=== PATIENT | female | born 1985 | race Caucasian/White ===

== ENCOUNTER 2019-08-08 13:04 | Emergency (ER) | payer SELFPAY ==
[2019-08-08 13:11] VITALS: BP 178/74; PULSE 103; RESP 18; TEMP 36.8; O2SAT 96
--- NOTE | 2019-08-08 13:29 | ED.GENADUL_ITS ---
Discharge Plan Disposition Patient Disposition: HOME Condition: Improving Discharge Details Chief Complaint: RespSymp Clinical Impression: Acute bronchitis, Rib fracture Primary Care Provider: None,None ED Provider: Ilda Bautista Home Meds and New Rx's Prescriptions: New oxycodone 5 mg tablet 5 mg PO Q6H PRN (Reason: pain) Qty: 7 RF: 0 prednisone 20 mg tablet See Rx Instructions .ROUTE .COMPLEX Qty: 12 RF: 0 albuterol sulfate 90 mcg/actuation aerosol powdr breath activated 2 inh IH Q6H PRN (Reason: shortness of breath or wheezing) Qty: 1 RF: 0 Continued buprenorphine-naloxone [Suboxone] 8-2 mg Film 2 film SUBLINGUAL DAILY RF: 0 Discharge Instructions Instructions: Rib Fracture (ED), Acute Bronchitis (ED) Additional Instructions: Alternate Tylenol and Motrin as needed and directed for pain. Take the oxycodone for pain not relieved with Tylenol Motrin. You can also try [id number] Lidoderm patches to apply topically for pain. Use the incentive spirometer as directed to help with deep breathing to prevent pneumonia. Take the steroids until finished. You will receive a call from care management regarding a follow-up appointment with a primary care doctor within the next week. Return to the emergency department if you develop any worsening or new concerning symptoms. Discharge Data Discharge Date/Time-TO BE ENTERED AT DEPARTURE: 08/08/19 15:35 Discharge Physician: Ilda Bautista Medical Decision Making [id number] -- 34-year-old female with a former history of IV drug abuse currently on Suboxone and a tobacco smoker who presents with cough with green sputum, wheezing, shortness of breath for the past few weeks, and right-sided lower rib pain after a coughing fit last night in which she heard a pop. Heart rate 103 on arrival. Normal oxygen saturation and respiratory rate, afebrile. Patient mildly hypertensive which appears likely due to discomfort in her rib. She has wheezing and rhonchi throughout. Presentation likely consistent with bronchitis versus pneumonia in setting of either rib strain or fracture. Will obtain a right ribs and chest x-ray give a dose of ibuprofen and a DuoNeb and prednisone and reassess. 1420 --patient shortness of breath and wheezing better. Still with coarse breath sounds throughout. X-ray notes right posterior lateral seventh rib fracture. Lidoderm patch placed. Patient states she has stopped her Suboxone in the past when taking narcotics if needed for pain. She took her Suboxone this morning so we will send home with a prescription for narcotic pain meds to take later or tomorrow as needed. We will give another DuoNeb and reassess. 1510 --patient feels much better and she is requesting to go home. She was advised to hold on Suboxone while taking her narcotic pain meds. She was given incentive spirometer for home. We will give a prescription for inhaler, prednisone. She was placed on care management list to arrange for a follow-up appointment for reevaluation. Usual and customary return precautions given prior to discharge. Imaging Data Radiologic Study: Radiologist's impression: XR RIBS RT W PA LAT CHEST INDICATION: cough, wheezing, r/o acute disease. COMPARISON: No exams were available for comparison TECHNIQUE: 2D digital imaging was performed. FINDINGS: Heart size and pulmonary vasculature within normal limits. The lungs are clear. There does appear to be blunting of the right costophrenic angle and a tiny pleural effusion cannot be excluded. No pneumothorax is present. There is a minimally displaced fracture involving the posterior lateral aspect of the right 7th rib. IMPRESSION: Minimally displaced fracture of the posterior lateral aspect of the right 7th rib. HPI General Mode of arrival: ambulatory . Date/Time Provider Initiated Documentation: 08/08/19 13:15 . Limitations to Documentation: no limitations . Information obtained by: patient . HPI Narrative: Patient is a 34-year-old female who is a tobacco smoker on Suboxone presents with cough with green sputum, wheezing, shortness of breath for the past few weeks. She states last night she had a coughing fit and felt a pop in her right lower ribs. She admits to pain with movement and deep breath now. She has taken [id number] cough and cold medication. She denies any known fever. Related Data Home Medications Medication Instructions Recorded Confirmed albuterol sulfate 2 inh IH Q6H PRN #1 each 08/08/19 buprenorphine-naloxone [Suboxone] 2 film SUBLINGUAL DAILY 08/08/19 08/08/19 oxycodone 5 mg PO Q6H PRN #7 tab 08/08/19 prednisone See Rx Instructions .ROUTE 08/08/19 .COMPLEX #12 tab Previous Rx's Medication Instructions Recorded albuterol sulfate 2 inh IH Q6H PRN #1 each 08/08/19 oxycodone 5 mg PO Q6H PRN #7 tab 08/08/19 prednisone See Rx Instructions .ROUTE 08/08/19 .COMPLEX #12 tab Allergies Allergy/AdvReac Type Severity Reaction Status Date / Time chlorpromazine Allergy Unverified 08/08/19 13:15 [From Thorazine] Penicillins Allergy Unverified 08/08/19 13:15 shellfish derived Allergy Unverified 08/08/19 13:15 General Stated Complaint: RespSymp DELFINA: 3 Review of Systems All systems reviewed & are unremarkable except as noted in HPI and below Constitutional Constitutional: Reports as per HPI, Denies chills and Denies fever(s) Eyes Eyes: Denies blurry vision ENT Ears, Nose, Mouth, and Throat: Denies dizziness, Denies sore throat and Denies throat swelling Cardiovascular Cardiovascular: Denies chest pain and Reports dyspnea Respiratory Respiratory: Reports cough and Reports dyspnea Gastrointestinal Gastrointestinal: Denies abdominal pain, Denies diarrhea and Denies vomiting Genitourinary Genitourinary: Denies hematuria and Denies dysuria Musculoskeletal Musculoskeletal: Denies back pain and Denies numbness Integumentary/Breasts Skin/Breast: Denies lesions and Denies rash Neurologic Neurologic: Denies dizziness, Denies focal weakness and Denies numbness Allergic/Immunologic Allergic/Immunologic: Denies throat swelling [facility] Medical History IV drug abuse (Acute) Surgical History History of bilateral tubal ligation (Acute) Social History Smoking/Tobacco Use Status: Current every day Tobacco Type: cigarettes Alcohol Intake: never Drug use: Never Substance use type: does not use Do you feel safe at home: Yes Do you feel safe in your relationship?: Yes Exam Const General: cooperative, healthy appearing and no acute distress HENMT Head: normal to inspection Ears: hearing grossly normal bilaterally, external ears normal and TM's normal bilaterally General nose exam: external nose normal Mouth: oral mucosae normal Throat: posterior oropharynx normal Eyes General: appearance normal, both eyes and all related structures Neck Neck: normal visual inspection Chest Chest: normal inspection of the chest and tenderness (Right lower anterior lateral ribs) Resp Effort & Inspection: normal respiratory effort and able to speak in complete sentences Auscultation: rhonchi upper bilaterally and lower bilaterally and wheezes lower bilaterally and upper bilaterally Cardio Rate: tachycardic Rhythm: regular rhythm Skin General skin exam: no rashes or lesions noted Neuro General: alert, awake and oriented x3 Motor: muscle tone normal throughout Extrem General: normal to inspection and full ROM Psych Appearance: grossly normal Affect: normal affect Course Vital Signs Vital signs: Vital Signs Temperature 98.2 F 08/08/19 13:11 Pulse 103 H 08/08/19 13:11 Respiratory Rate 18 08/08/19 13:11 Blood Pressure 178/74 H 08/08/19 13:11 Pulse Oximetry 96 08/08/19 13:11 Temperature 98.2 F 08/08/19 13:11 Temperature Source Temporal Artery Scan 08/08/19 13:11 Pulse 103 H 08/08/19 13:11 Respiratory Rate 18 08/08/19 13:11 Respiratory Effort 08/08/19 13:16 Respiratory Depth Shallow 08/08/19 13:16 Blood Pressure 178/74 H 08/08/19 13:11 Blood Pressure Position Sitting 08/08/19 13:11 Pulse Oximetry 96 08/08/19 13:11 Oxygen Delivery Method Room Air 08/08/19 13:11 Oxygen Flow Rate 0 08/08/19 13:11 Pain Level 10 08/08/19 13:11
[2019-08-08 13:32] VITALS: PULSE 103; RESP 18; RESP 7; O2SAT 96
[2019-08-08] MEDS: Albuterol/Ipratropium 3 ML UPD VIAL UPD ×2 (13:32→14:29)
[2019-08-08] MEDS: predniSONE 20 MG TAB 60 MG PO (13:32)
[2019-08-08] MEDS: Ibuprofen 600 MG TAB (13:33)
--- NOTE | 2019-08-08 13:54 | DI.RAD_ITS ---
EXAM: XR RIBS RT W PA LAT CHEST INDICATION: cough, wheezing, r/o acute disease. COMPARISON: No exams were available for comparison TECHNIQUE: 2D digital imaging was performed. FINDINGS: Heart size and pulmonary vasculature within normal limits. The lungs are clear. There does appear t o be blunting of the right costophrenic angle and a tiny pleural effusion cannot be excluded. No pne umothorax is present. There is a minimally displaced fracture involving the posterior lateral aspect of the right 7th rib. IMPRESSION: Minimally displaced fracture of the posterior lateral aspect of the right 7th rib.
[2019-08-08] MEDS: Lidocaine 5% Patch 1 PATCH TP (14:26)
[2019-08-08 14:29] VITALS: RESP 4; RESP 8
--- NOTE | 2019-08-08 15:40 | NUR.NOTE ---
Nursing Note: Referral given to [employer] Operator for establish PCP and follow up. Janel Rey.
== END 2019-08-08 15:35 | disposition home or self-care (01) ==
PROVIDERS: Emergency Provider Physician Assistant
DX: J20.9 Acute bronchitis, unspecified (principal); S22.31XA Fracture of one rib, right side, initial encounter for closed fracture; X50.9XXA Other and unspecified overexertion or strenuous movements or postures, initial encounter; Z79.891 Long term (current) use of opiate analgesic; F11.10 Opioid abuse, uncomplicated; F17.210 Nicotine dependence, cigarettes, uncomplicated
CPT/HCPCS: 81025; 94640; 99284; 71046; 71100; J7512; J7620

== ENCOUNTER 2019-08-13 17:57 | Inpatient (IN) | payer SELFPAY ==
[2019-08-13] VITALS (32 sets, daily range): BP systolic 127–157; BP diastolic 75–100; PULSE 98–117; RESP 11–25; TEMP 36.7–37; O2SAT 84–99
[2019-08-13 19:04] LABS: Abs Immature Grans 0.02 k/cumm (0.0-0.09); Absolute Basophil Count 0.02 k/cumm (0.0-0.2); Absolute Eosinophil Count 0.13 k/cumm (0.0-0.7); Absolute Lymphocyte Count 1.94 k/cumm (1.2-3.4); Basophils % 0.2; Eosinophils % 1.1; Immature Grans % 0.2; Lactate 0.8 mmol/L (0.6-1.4); Lymphocytes % 16.6; Mean Corp. HGB Concentration 33.3 g/dL (32.0-36.0); Mean Corpuscular Hemoglobin 29.2 pg (27.0-33.0); Mean Corpuscular Volume 87.7 fL (80-95); Mean Platelet Volume 10.8 fL (8.0-11.0); Neutrophils % 69.9; Platelet Count 182 x1000/uL (130-400); RBC 3.42 m/cumm (4.00-5.20); RBC Distribution Width 12.9 % (11.7-14.6); White Blood Cell Count 11.71 k/cumm (4.4-10.8)
[2019-08-13 19:05] LABS: Absolute Monocyte Count 1.41 k/cumm (0.11-0.7); Absolute Neutrophil Count 8.19 k/cumm (1.2-6.7)
[2019-08-13] MEDS: Albuterol/Ipratropium 3 ML UPD VIAL UPD (19:15)
[2019-08-13 19:26] LABS: ALT 31 U/L (14-59); AST 28 U/L (15-37); Albumin 2.8 g/dL (3.4-5.0); Alkaline Phosphatase 94 U/L (46-116); Anion Gap 4.9 mmol/L (3-11); BUN 8 mg/dL (7-18); Bilirubin, Total 0.4 mg/dL (0.2-1.0); CO2 31.1 mmol/L (21.0-32.0); CREATININE 0.62 mg/dL (0.55-1.02); Calcium 8.3 mg/dL (8.5-10.1); Chloride 95 mmol/L (98-107); Glucose 105 mg/dL (74-106); NT-proBNP 505 pg/mL (<300); Potassium 3.5 mmol/L (3.5-5.1); Sodium 131 mmol/L (136-145); Total Protein 6.9 g/dL (6.4-8.2); Troponin I < 0.05 ng/Ml (<0.06)
[2019-08-13 19:34] LABS: Bilirubin Negative (Negative); Blood Trace-lysed (Negative); Clarity Clear (Clear); Glucose Negative (Negative); Ketones Negative (Negative); Leukocyte Esterase Small (Negative); Nitrite Negative (Negative); Specific Gravity <= 1.005 (1.005-1.025); Urobilinogen 0.2 EU/dL (Up TO 0.2)
[2019-08-13 19:40] LABS: D-Dimer 2829 ng/mlFEU (<500)
[2019-08-13 19:42] LABS: Bacteria Negative HPF (Negative); Casts Negative LPF (Negative); Crystals Negative HPF (Negative); Epithelial Cells Few HPF (Negative); Mucus Negative (Negative); Other Cells Negative (Negative); RBC Negative HPF (0-2)
[2019-08-13 19:43] LABS: C & S Indicated? Yes
[2019-08-13 19:53] LABS: ESR 110 mm/hr (0-20)
[2019-08-13] MEDS: Omnipaque 350 MG/ML 100 ML BTL IJ (20:18)
--- NOTE | 2019-08-13 20:38 | DI.CT_ITS ---
EXAM: CT CHEST PE CTA CLINICAL HISTORY: SOB r/o PE TECHNIQUE: CT angiography of the chest was performed with bolus infusion of 100 cc of Omnipaque 350. Axial CT angiography was performed with multi-slice acquisition and multi-planar and/or 3D reconstruc tions. COMPARISON: No exams were available for comparison FINDINGS: Note is made of a right 7th rib fracture posteriorly which appears to be acute or subacute. No addit ional fracture seen. Images obtained through the upper abdomen show grossly unremarkable appearance of visualized portions of liver, spleen, left kidney, adrenals and pancreas. There are diffuse bilateral intrapulmonary ground-glass and consolidative infiltrates consistent with multifocal pneumonia. No significant left pleural effusion. There are right pleural fluid collecti ons which appear somewhat lobulated and multicentric raising the possibility of empyema. Additionall y there is a fluid attenuation mass seen at the level of the nela posteriorly which may be contiguo us with the pleural fluid collection, this could represent extension of an empyema. Alternatively th is may represent a primary mediastinal mass, question foregut cyst, adenopathy or other mass lesion n ot excluded. Tracheobronchial tree appears intact. Thoracic aorta is unremarkable with no aneurysm or dissection. No evidence of pulmonary embolic disease. Dilatation of the main pulmonary artery at 4.2 cm is not ed raising the possibility of chronic pulmonary arterial hypertension. IMPRESSION: No evidence of pulmonary embolic disease. Note is made of dilatation of the main pulmonary artery at 4.2 cm Multifocal intrapulmonary infiltrates consistent with multifocal pneumonia, other etiologies not excl uded. Lobulated right pleural effusion raising the possibility of empyema, a posterior mediastinal mass on the right may be contiguous with the pleural effusion and could represent extension of empyema, versu s primary mediastinal abnormality.
--- NOTE | 2019-08-13 20:51 | DI.VRAD_ITS ---
PROCEDURE INFORMATION: Exam: CT Angiography Chest With Contrast Exam date and time: 08/13/2019 7:05 PM Age: 34 years old Clinical indication: Shortness of breath TECHNIQUE: Imaging protocol: Computed tomographic angiography of the chest with intravenous contrast. 3D rendering: MIP and/or 3D reconstructed images were created by the technologist. Contrast material: OMNIPAQUE 350; Contrast volume: 100 ml; Contrast route: IV RAC; COMPARISON: CR XR RIBS RT W PA LAT CHEST 08/08/2019 1:54 PM FINDINGS: Pulmonary arteries: No pulmonary artery embolism. Aorta: Unremarkable. No aortic aneurysm. No aortic dissection. Lungs: Bilateral areas of patchy airspace disease consistent with bilateral pneumonia or pneumonitis. This is worse on the left than right. There is right basilar compressive atelectasis. Pleural space: Moderate right pleural effusion. Heart: Normal heart size. No pericardial effusion. Mediastinum: Soft tissue prominence on the right aspect of the mediastinum adjacent to this off a Marc measuring approximately 4.4 x 2.7 cm. Uncertain significance. This could represent a 4 gut duplication cyst. This could be further evaluated with nonemergent MRI if felt clinically warranted. Lymph nodes: Unremarkable. No enlarged lymph nodes. Bones/joints: Unremarkable. No acute fracture. Soft tissues: Unremarkable. IMPRESSION: 1. Bilateral areas of lung infiltrate suggesting pneumonitis. 2. Moderate right pleural effusion. 3. Right posterior mediastinal soft tissue attenuation structure measuring 4.4 cm in greatest dimension. 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 Additional imaging may be warranted such as outpatient MRI. Dictated and Authenticated by: Luis Velez MD. Ordering:YULIANA Hernandez MD
[2019-08-13] MEDS: Albuterol/Ipratropium 3 ML UPD VIAL (21:24)
[2019-08-13] MEDS: Furosemide 40 MG/4 ML VIAL (21:24)
--- NOTE | 2019-08-13 21:26 | ED.GENADUL_ITS ---
Discharge Plan Disposition Patient Disposition: [facility] INPATIENT Condition: Stable Discharge Details Chief Complaint: SOB Clinical Impression: Bilateral pneumonia, Pleural effusion Primary Care Provider: None,None ED Provider: Mary Helms Home Meds and New Rx's Prescriptions: No Action buprenorphine-naloxone [Suboxone] 8-2 mg Film 2 film SUBLINGUAL DAILY RF: 0 oxycodone 5 mg tablet 5 mg PO Q6H PRN (Reason: pain) Qty: 7 RF: 0 prednisone 20 mg tablet See Rx Instructions .ROUTE .COMPLEX Qty: 12 RF: 0 albuterol sulfate 90 mcg/actuation aerosol powdr breath activated 2 inh IH Q6H PRN (Reason: shortness of breath or wheezing) Qty: 1 RF: 0 Medical Decision Making Is a 34-year-old patient who is a known IV drug user on Suboxone who presents to the emergency room today for complaints of shortness of breath, cough, right chest and rib pain in addition to accumulation of fluid in bilateral lower legs and her abdomen. Patient reports new accumulation of fluid in the last 5 days. Patient recently seen in the emergency room 5 days ago treated with pain medication as well as inhaler. Patient never filled prescribed prednisone. Patient reports increase in shortness of breath, wheezing and cough as well as concern with no fluid noted in bilateral legs and lower abdomen. Patient reports she has been eating and drinking without difficulty. Patient does report no nausea, vomiting or diarrhea. Patient denies headache or dizziness. Patient does report position of comfort for the last 2 nights with sitting upright in a recliner due to difficulty breathing when laying flat. Patient had notable hypoxia in the high 80s low 90s with associated tachycardia upon presentation on personnel monitor. CT a to rule out PE of chest ordered, blood cultures, lactic, labs including troponin. DuoNeb ordered. Patient's O2 sats improved on 3 L of O2 nasal cannula Patient's initial labs reveal mild leukocytosis, ESR of 110 sodium 131 of note. Patient CTA Reveals bilateral areas of lung infiltrate suggesting pneumonitis versus pneumonia with a moderate right pleural effusion. Incidental possibly cystic structure also noted in the mediastinum. Patient's EKG reveals a heart rate of 94 with regular rate and rhythm with no significant ST segment changes. This was reviewed with Dr. Fernando Haley. Plan of care includes admission to the hospital, administration of antibiotics IV, administration of Lasix IV, consideration of echocardiogram inpatient to rule out any cardiac leaf vegetations. Blood cultures pending. HIV testing pending. Patient last HIV test was 2 years ago. Patient agrees with plan of care. Spoke with hospitalist who will admit patient. HPI General Date/Time Provider Initiated Documentation: 08/13/19 18:14 . HPI Narrative: Is a 34-year-old patient who presents for complaints of shortness of breath, persisting coughing, right-sided chest pain as well as bilateral leg swelling and edema in her lower belly. Patient reports she was recently seen in the emergency room 5 days ago for onset of a cough which resulted in significant coughing fit and acute right rib pain for which she was concerned she had fractured a rib. Patient was ultimately diagnosed with a rib fracture treated with narcotic pain meds, and inhaler, prednisone. Patient was unable to fill prednisone due to finances she did take pain medication and inhaler. Patient is now out of her pain medication and reports persistent right-sided rib pain. Patient primarily concerned with the new accumulation of fluid in her legs and abdomen. Patient reports persistent wheezing and coughing. Patient does report shortness of breath. Denies significant headache or dizziness. Patient denies measured fever. Mild chills and malaise. Patient is on Suboxone. Did use all of her pain medication and does admit to last use of IV heroin 5 days ago. Related Data Home Medications Medication Instructions Recorded Confirmed albuterol sulfate 2 inh IH Q6H PRN #1 each 08/08/19 08/13/19 buprenorphine-naloxone [Suboxone] 2 film SUBLINGUAL DAILY 08/08/19 08/13/19 oxycodone 5 mg PO Q6H PRN #7 tab 08/08/19 08/13/19 prednisone See Rx Instructions .ROUTE 08/08/19 .COMPLEX #12 tab Previous Rx's Medication Instructions Recorded albuterol sulfate 2 inh IH Q6H PRN #1 each 08/08/19 oxycodone 5 mg PO Q6H PRN #7 tab 08/08/19 prednisone See Rx Instructions .ROUTE 08/08/19 .COMPLEX #12 tab Allergies Allergy/AdvReac Type Severity Reaction Status Date / Time chlorpromazine Allergy Unverified 08/13/19 18:38 [From Thorazine] Penicillins Allergy Unverified 08/13/19 18:38 shellfish derived Allergy Unverified 08/13/19 18:38 General Stated Complaint: SOB DELFINA: 2 Review of Systems All systems reviewed & are unremarkable except as noted in HPI and below Constitutional Constitutional: Reports chills, Reports fatigue, Denies fever(s) and Reports malaise ENT Ears, Nose, Mouth, and Throat: Denies vertigo, Denies dizziness, Reports nasal congestion, Reports post nasal drip, Denies sinus pain and Denies sinus pressure Cardiovascular Cardiovascular: Reports chest pain, Denies chest pain at rest, Reports dyspnea and Reports dyspnea on exertion Respiratory Respiratory: Reports cough, Reports excessive phlegm production, Reports pain with cough, Reports dyspnea, Reports dyspnea on exertion and Reports wheezing Gastrointestinal Gastrointestinal: Denies abdominal pain, Denies diarrhea, Denies nausea and Denies vomiting Genitourinary Genitourinary: Denies dysuria Neurologic Neurologic: Denies vertigo and Denies dizziness Endocrine Endocrine: Reports fatigue Allergic/Immunologic Allergic/Immunologic: Reports wheezing [facility] Medical History IV drug abuse (Acute) Social History Smoking/Tobacco Use Status: Current every day Tobacco Type: cigarettes Alcohol Intake: never Drug use: Occasionally Substance use type: heroin Details: on suboxone Do you feel safe at home: Yes Do you feel safe in your relationship?: Yes Exam Narrative Exam Narrative: CONST: Ill appearing patient. Well hydrated. Alert and alert. HENMT: Head nomocephalic, normal to inspection. Atraumatic. Hearing grossly normal. External ear canal no erythema or swelling. TM normal bilaterally. Nose normal to inspection. No rhinnorhea. Normal facial exam. Oral mucosa normal. Tounge normal. Dentition normal. Erythema of posterior oropharynx. Uvula midline. EYES: General normal appearance. Alignment normal. Eyelids normal. Conjunctiva normal. Sclera normal. PERRL. NECK: Normal visual inspection. FROM. No lymphadenopathy. Trachea midline. No Midline tenderness. CHEST: Normal insepection of the chest. Right-sided rib tenderness with palpation. No flare chest RESP: Mildly increased respiratory effort. Speaking full sentences. Cough present. No retractions. Diffuse wheezing on breath sounds, diminished on the right lower base CARDIO: No JVD. Normal PMI. Regular Rate. Regular Rhythm. Normal peripheral pulses. No murmur GI: Normal inspection of abdomen. No distension. Soft. Nontender. Bowel sounds present in all 4 quadrants. No rebound. No gaurding. MUSCULOSKELETAL: Normal Gait. FROM of all extremities. Distal neurovascularly intact. Sensation intact distally. Bilateral lower leg edema pitting, 2+ SKIN: Multiple skin wounds. NEURO: Alert and awake. Speech clear. PSYCH: Normal affect. Cooperative. Course Vital Signs Vital signs: Vital Signs Temperature 36.7 C 08/13/19 18:30 Pulse 110 H 08/13/19 18:30 Respiratory Rate 22 08/13/19 18:30 Blood Pressure 157/93 H 08/13/19 18:30 Pulse Oximetry 90 L 08/13/19 18:30 Temperature 36.7 C 08/13/19 18:30 Temperature Source Temporal Artery Scan 08/13/19 18:30 Pulse 102 H 08/13/19 21:01 Pulse 99 H 08/13/19 21:10 Respiratory Rate 15 08/13/19 21:10 Respiratory Effort 08/13/19 19:57 Respiratory Depth Deep 08/13/19 19:57 Respiratory Pattern Tachypnea 08/13/19 19:57 Blood Pressure 144/90 H 08/13/19 21:01 Blood Pressure Mean 100 08/13/19 21:01 Blood Pressure Position Sitting 08/13/19 18:30 Pulse Oximetry 94 L 08/13/19 21:10 Oxygen Delivery Method Room Air 08/13/19 18:30 Oxygen Flow Rate 0 08/13/19 18:30 Pain Level 9 08/13/19 18:30 Lab/Test Results Lab/Test Results: 08/13/19 19:30 Urine - Reflex from Ua Urine Culture - Pending 08/13/19 18:55 Blood Blood Culture - Pending 08/13/19 18:24 Blood Blood Culture - Pending Laboratory Tests Range/Units 08/13/19 08/13/19 08/13/19 18:55 18:55 18:55 WBC (4.4-10.8) k/cumm RBC (4.00-5.20) m/cumm Hgb (12.0-15.5) g/dL Hct (36.0-46.0) % MCV (80-95) fL MCH (27.0-33.0) pg MCHC (32.0-36.0) g/dL RDW (11.7-14.6) % Plt Count (130-400) x1000/uL MPV (8.0-11.0) fL Immature Gran % Neutrophils % Lymphocytes % Monocytes % Eosinophils % Basophils % Absolute Neutrophils (1.2-6.7) k/cumm Absolute Lymphocytes (1.2-3.4) k/cumm Absolute Monocytes (0.11-0.7) k/cumm Absolute Eosinophils (0.0-0.7) k/cumm Absolute Basophils (0.0-0.2) k/cumm ESR (0-20) mm/hr D-Dimer (<500) ng/mlFEU 2829 H Sodium (136-145) mmol/L 131 L Potassium (3.5-5.1) mmol/L 3.5 Chloride (98-107) mmol/L 95 L Carbon Dioxide (21.0-32.0) mmol/L 31.1 Anion Gap (3-11) mmol/L 4.9 BUN (7-18) mg/dL 8 Creatinine (0.55-1.02) mg/dL 0.62 Estimated GFR/1.73 m2 (mL/min/1.73m2) >= 60.00 Glucose (74-106) mg/dL 105 Lactate (0.6-1.4) mmol/L 0.8 Calcium (8.5-10.1) mg/dL 8.3 L Total Bilirubin (0.2-1.0) mg/dL 0.4 AST (15-37) U/L 28 ALT (14-59) U/L 31 Alkaline Phosphatase (46-116) U/L 94 Troponin I (<0.06) ng/Ml < 0.05 NT-Pro-B Natriuret Pep (<300) pg/mL 505 Total Protein (6.4-8.2) g/dL 6.9 Albumin (3.4-5.0) g/dL 2.8 L Urine Color (Yellow) Urine Clarity (Clear) Urine pH (5-8) Ur Specific [employer] (1.005-1.025) Urine Protein (Negative) mg/dL Urine Ketones (Negative) mg/dL Urine Blood (Negative) Urine Nitrite (Negative) Urine Bilirubin (Negative) Urine Urobilinogen (Up TO 0.2) EU/dL Ur Leukocyte Esterase (Negative) Urine RBC (0-2) HPF Urine WBC (0-5) HPF Ur Epithelial Cells (Negative) HPF Urine Crystals (Negative) HPF Urine Bacteria (Negative) HPF Urine Casts (Negative) LPF Urine Mucus (Negative) Urine Other (Negative) Ur Culture Indicated? Urine Glucose (Negative) mg/dL Range/Units 08/13/19 08/13/19 18:55 19:30 WBC (4.4-10.8) k/cumm 11.71 H RBC (4.00-5.20) m/cumm 3.42 L Hgb (12.0-15.5) g/dL 10.0 L Hct (36.0-46.0) % 30.0 L MCV (80-95) fL 87.7 MCH (27.0-33.0) pg 29.2 MCHC (32.0-36.0) g/dL 33.3 RDW (11.7-14.6) % 12.9 Plt Count (130-400) x1000/uL 182 MPV (8.0-11.0) fL 10.8 Immature Gran % 0.2 Neutrophils % 69.9 Lymphocytes % 16.6 Monocytes % 12.0 Eosinophils % 1.1 Basophils % 0.2 Absolute Neutrophils (1.2-6.7) k/cumm 8.19 H Absolute Lymphocytes (1.2-3.4) k/cumm 1.94 Absolute Monocytes (0.11-0.7) k/cumm 1.41 H Absolute Eosinophils (0.0-0.7) k/cumm 0.13 Absolute Basophils (0.0-0.2) k/cumm 0.02 ESR (0-20) mm/hr 110 H D-Dimer (<500) ng/mlFEU Sodium (136-145) mmol/L Potassium (3.5-5.1) mmol/L Chloride (98-107) mmol/L Carbon Dioxide (21.0-32.0) mmol/L Anion Gap (3-11) mmol/L BUN (7-18) mg/dL Creatinine (0.55-1.02) mg/dL Estimated GFR/1.73 m2 (mL/min/1.73m2) Glucose (74-106) mg/dL Lactate (0.6-1.4) mmol/L Calcium (8.5-10.1) mg/dL Total Bilirubin (0.2-1.0) mg/dL AST (15-37) U/L ALT (14-59) U/L Alkaline Phosphatase (46-116) U/L Troponin I (<0.06) ng/Ml NT-Pro-B Natriuret Pep (<300) pg/mL Total Protein (6.4-8.2) g/dL Albumin (3.4-5.0) g/dL Urine Color (Yellow) Yellow Urine Clarity (Clear) Clear Urine pH (5-8) 6.0 Ur Specific [employer] (1.005-1.025) <= 1.005 Urine Protein (Negative) mg/dL Negative Urine Ketones (Negative) mg/dL Negative Urine Blood (Negative) Trace-lysed H Urine Nitrite (Negative) Negative Urine Bilirubin (Negative) Negative Urine Urobilinogen (Up TO 0.2) EU/dL 0.2 Ur Leukocyte Esterase (Negative) Small H Urine RBC (0-2) HPF Negative Urine WBC (0-5) HPF 5-10 Ur Epithelial Cells (Negative) HPF Few Urine Crystals (Negative) HPF Negative Urine Bacteria (Negative) HPF Negative Urine Casts (Negative) LPF Negative Urine Mucus (Negative) Negative Urine Other (Negative) Negative Ur Culture Indicated? Yes Urine Glucose (Negative) mg/dL Negative POC- Test(urine) Negative
[2019-08-13] MEDS: cefTRIAXone 1 GM/50 ML BAG IVPB (22:01)
[2019-08-13] MEDS: VANCOMYCIN 2,000 MG in Normal Saline 500 ML 250 MG IVPB (22:03)
[2019-08-13] MEDS: AZITHROMYCIN 500 MG in Normal Saline 250 ML 250 MG IVPB (22:12)
[2019-08-13] MEDS: Ondansetron 4 MG/2 ML VIAL IVP (22:24)
--- NOTE | 2019-08-13 23:57 | HPE_ITS ---
Date of service: 08/13/19 Time of Service: 23:57 Assessment and Plan Assessment and plan (1) Pneumonia of both lower lobes: Status: Acute Assessment and plan: Continue with broad-spectrum antibiotics as initiated in the emergency department including ceftriaxone 2 g IV every 24 hours along with azithromycin and vancomycin. Pharmacy will dose the vancomycin. Patient will continue on scheduled nebulizer treatments along with supplemental oxygen. We will attempt to obtain a sputum for culture. Meantime we will obtain atypical studies and urine for strep antigen. Qualifiers: Pneumonia type: due to unspecified organism Qualified Code(s): J18.9 - Pneumonia, unspecified organism (2) Parapneumonic effusion: Status: Acute Assessment and plan: I will ask surgery to see in the morning to review her chest x-ray and consider a thoracentesis to rule out empyema. (3) IV drug abuse: Status: Acute Assessment and plan: In light of her fever chills and rigors in addition to treating her for pneumonia we will work her up for possible acute endocarditis. Blood cultures have already been obtained. We will obtain an echocardiogram in the morning to look for any vegetations. (4) Chest wall pain: Status: Acute Assessment and plan: Chest wall pain will be treated with IV ketorolac. I will resume her Suboxone therapy in the morning. I will add lidoderm patches. (5) Right rib fracture: Status: Acute Assessment and plan: treat chest wall pain as above w/ Tylenol, Ketorolac, topical lidocaine. I will try to avoid use of narcotics in this patient d/t her hx of addiction. However, she did require one time dose of dilaudid d/t severity of her pain and I could not adequately examine her w/out achieving some degree of immediate pain control. I will resume her suboxone in the a.m. She apparently has been going back to [place] monthly and apparently has been receiving a whole month at a time. Qualifiers: Encounter type: subsequent encounter Fracture healing: with routine healing Fracture type: closed Rib fracture type: single rib Qualified Code(s): S22.31XD - Fracture of one rib, right side, subsequent encounter for fracture with routine healing (6) Right heart failure: Status: Suspected Assessment and plan: patient was given iv lasix in the ER. I have given her another dose of iv lasix and will check repeat labs including BNP and BMP in the a.m. as well as obtain echocardiogram to evaluate RV size/function and to look for any signs of vegetation given her hx of iv heroin use. History of Present Illness History of Present Illness Chief Complaint: cough, dyspnea, chest wall pain, fevers Narrative: 34-year-old female known IV drug user of heroin who reportedly last used 5 days ago. She is also supposed to be on chronic Suboxone therapy for her drug addiction which she receives from a provider in [facility] despite the fact that she is resided in [place] for the past 4 months. She presents emergency department with complaints of shortness of breath, cough, right-sided chest and rib pain as well as increased abdominal edema and bilateral lower leg edema. Her symptoms started several days ago. States she been fighting a cold for the past few weeks with upper respiratory congestion and nonproductive cough. However the cough got worse over the last few days and became productive of greenish sputum along with wheezing and increased shortness of breath and after a paroxysm of coughing she felt a pop on the right side of her chest wall and had severe right-sided pain with coughing or deep breathing. She presented to the emergency room on August 08, 2019 where she was diagnosed with a right-sided rib fracture in the posterior lateral seventh rib. She was treated with a Lidoderm patch and given aerosol treatments. At that time there was no pneumothorax and no pleural effusion or infiltrate. She was discharged from the emergency department on oxycodone prednisone and albuterol inhaler. Since that time she now returns emergency department with increased dyspnea worsening cough and worsening right-sided chest pain. She completed all of her oxycodone but never filled the prednisone but did fill the prescription for the inhaler. Over the last 5 days she has had increased bilateral leg edema and abdominal swelling. She has had fever and chills including rigors and sweats. Upon presentation emergency department she was tachycardic and hypoxic with an oxygen saturation in the high 80s which improved on 3 L of oxygen per nasal cannula. Examination demonstrated a morbidly obese female who was ill-appearing with diffuse expiratory wheezes and a harsh cough and cardiac exam was regular to slightly tachycardic. Neck was obese and difficult to circuit court judge JVD. She had 2+ pitting edema to both lower extremities up to her knees. Skin showed multiple superficial wounds where she been picking at the skin. Patient was seen in the emergency department by MONI Joy who performed a CTA of her chest that showed no pulmonary embolism but did show bilateral areas of patchy airspace disease consistent with bilateral pneumonia or pneumonitis worse on the left than the right. Right side had basilar compressive atelectasis and a moderate right pleural effusion. No pericardial effusion was seen and the heart size was normal. 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 Further imaging with an outpatient MRI was recommended. There is no lymphadenopathy. Labor atory studies were remarkable for leukocytosis of 11,700 and an anemia with a hemoglobin 10 g. ESR was elevated at 110. D-dimer is elevated 2800. Chemistry panel showed a low sodium of 131, chlorides 95, normal BUN of 18 and creatinine 0.62. LFTs were within normal limits. proBNP was elevated at 505. Troponin is less than 0.05. Urinalysis showed small leukocyte esterase but negative for uri nary nitrites and a trace of lysed urine blood. Negative for protein and ketones. No bacteria was seen. EKG was remarkable for sinus rhythm at a rate of 94 bpm with right axis deviation possible right ventricular hypertrophy. Treatment in the emergency department consisted of ceftriaxone 2 g IV and erythromycin 500 mg IV and vancomycin 2 g. She was also given Zofran for nausea as well as multiple updrafts of DuoNeb. She is now being admitted for treatment of pneumonia as well as probable right heart failure and be ruled out for endocarditis. Review of Systems Constitutional Constitutional: Reports body ache(s), Reports chills, Reports excessive sweating, Reports fever(s) and Reports malaise Cardiovascular Cardiovascular: Reports chest pain, Reports leg edema, Reports dyspnea, Reports dyspnea on exertion and Reports orthopnea Respiratory Respiratory: Reports change in phlegm color, Reports chest congestion, Reports cough, Denies hemoptysis, Reports pain on inspiration, Reports pain with cough, Reports dyspnea, Reports dyspnea on exertion and Reports wheezing Gastrointestinal Gastrointestinal: Reports abdominal pain, Reports nausea and Denies vomiting Genitourinary Genitourinary: Reports system reviewed and no additional complaints, except as docu Musculoskeletal Musculoskeletal: Reports system reviewed and no additional complaints, except as docu Integumentary/Breasts Skin/Breast: Reports non-healing lesions and Reports sores Neurologic Neurologic: Reports system reviewed and no additional complaints, except as docu Psychiatric Psychiatric: Reports system reviewed and no additional complaints, except as docu Endocrine Endocrine: Reports system reviewed and no additional complaints, except as docu and Reports excessive sweating Hematologic/Lymphatic Hematologic/Lymphatic: Reports system reviewed and no additional complaints, except as docu Allergic/Immunologic Allergic/Immunologic: Reports system reviewed and no additional complaints, except as docu and Reports wheezing PFSH Medical History History of asthma (Acute) History of bipolar disorder (Acute) IV drug abuse (Acute) Surgical History (Updated 08/14/19 @ 03:16 by Live Wiggins) History of bilateral tubal ligation (Acute) History of section (Chronic) Social History Smoking/Tobacco Use Status: Current every day Tobacco Type: cigarettes Alcohol Intake: never Drug use: Occasionally Substance use type: heroin Details: on suboxone Do you feel safe at home: Yes Do you feel safe in your relationship?: Yes History History 4 Para Hx # Term Pregnancies 2 Multiple births Hx # Pregnancies Ectopic pregnancies AB induced 1 Hx Number of Living Children 2 AB spontaneous 1 Meds Home Medications and Allergies Home Medications Medication Instructions Recorded Confirmed Type albuterol sulfate 2 inh IH Q6H PRN #1 each 08/08/19 08/13/19 Rx buprenorphine-naloxone [Suboxone] 2 film SUBLINGUAL DAILY 08/08/19 08/13/19 History oxycodone 5 mg PO Q6H PRN #7 tab 08/08/19 08/13/19 Rx prednisone See Rx Instructions .ROUTE 08/08/19 Rx .COMPLEX #12 tab Allergies Allergy/AdvReac Type Severity Reaction Status Date / Time chlorpromazine Allergy Unverified 08/13/19 18:38 [From Thorazine] Penicillins Allergy Unverified 08/13/19 18:38 shellfish derived Allergy Unverified 08/13/19 18:38 Exam Narrative Exam Narrative: Obese female in mild respiratory distress secondary to wheezing and tachypnea. Skin is diaphoretic. HEENT is remarkable for cold sore on her lower lip Neck is obese supple nontender with normal range of motion with no overt JVD. No thyromegaly. No lymphadenopathy. Lungs reveal diffuse wheezes and diminished breath sounds at the right lung base. Right chest wall is tender to palpation. Heart is tachycardic with a systolic click over the left sternal border. No palpable thrill or heave gallop. Abdomen is obese soft and distended. She has normal active bowel sounds. She has tenderness below the right costophrenic border Lower extremities reveal 2+ pitting edema from just below the knees all the way down to the ankles. Skin reveals multiple scabs and superficial skin ulcerations over the chest wall and arms. She has multiple tattoos. She has a non-healing scab over the left lateral distal humerus just above the elbow where she had injected heroin a few days ago. she also has a non-healing scab over the dorsum of her right wrist. I did not find any Osler nodes or Janeway lesions. Neurologic: she is alert at times but then will become somnolent and w/ sonorous respirations but awakens easily. She has a lot of myoclonus but no tremors. She has normal motor strength and sensation. Results Labs Result diagrams: 08/14/19 06:40 08/13/19 18:55 Labs: Laboratory Results - last 24 hr 08/13/19 08/13/19 08/13/19 18:55 18:55 18:55 WBC RBC Hgb Hct MCV MCH MCHC RDW Plt Count MPV Immature Gran % Neutrophils % Lymphocytes % Monocytes % Eosinophils % Basophils % Absolute Neutrophils Absolute Lymphocytes Absolute Monocytes Absolute Eosinophils Absolute Basophils ESR D-Dimer 2829 H Sodium 131 L Potassium 3.5 Chloride 95 L Carbon Dioxide 31.1 Anion Gap 4.9 BUN 8 Creatinine 0.62 Estimated GFR/1.73 m2 >= 60.00 Glucose 105 Lactate 0.8 Calcium 8.3 L Total Bilirubin 0.4 AST 28 ALT 31 Alkaline Phosphatase 94 Troponin I < 0.05 NT-Pro-B Natriuret Pep 505 Total Protein 6.9 Albumin 2.8 L Urine Color Urine Clarity Urine pH Ur Specific [place] Urine Protein Urine Ketones Urine Blood Urine Nitrite Urine Bilirubin Urine Urobilinogen Ur Leukocyte Esterase Urine RBC Urine WBC Ur Epithelial Cells Urine Crystals Urine Bacteria Urine Casts Urine Mucus Urine Other Ur Culture Indicated? Urine Glucose HIV 1&2 Antibody Rapid 08/13/19 08/13/19 08/13/19 18:55 19:30 21:24 WBC 11.71 H RBC 3.42 L Hgb 10.0 L Hct 30.0 L MCV 87.7 MCH 29.2 MCHC 33.3 RDW 12.9 Plt Count 182 MPV 10.8 Immature Gran % 0.2 Neutrophils % 69.9 Lymphocytes % 16.6 Monocytes % 12.0 Eosinophils % 1.1 Basophils % 0.2 Absolute Neutrophils 8.19 H Absolute Lymphocytes 1.94 Absolute Monocytes 1.41 H Absolute Eosinophils 0.13 Absolute Basophils 0.02 ESR 110 H D-Dimer Sodium Potassium Chloride Carbon Dioxide Anion Gap BUN Creatinine Estimated GFR/1.73 m2 Glucose Lactate Calcium Total Bilirubin AST ALT Alkaline Phosphatase Troponin I NT-Pro-B Natriuret Pep Total Protein Albumin Urine Color Yellow Urine Clarity Clear Urine pH 6.0 Ur Specific [place] <= 1.005 Urine Protein Negative Urine Ketones Negative Urine Blood Trace-lysed H Urine Nitrite Negative Urine Bilirubin Negative Urine Urobilinogen 0.2 Ur Leukocyte Esterase Small H Urine RBC Negative Urine WBC 5-10 Ur Epithelial Cells Few Urine Crystals Negative Urine Bacteria Negative Urine Casts Negative Urine Mucus Negative Urine Other Negative Ur Culture Indicated? Yes Urine Glucose Negative HIV 1&2 Antibody Rapid Cancelled Last Vital Signs Temp 37 C 08/13/19 22:25 Pulse 100 H 08/13/19 22:25 Resp 19 08/13/19 22:40 BP 136/90 08/13/19 22:25 Pulse Ox 95 08/13/19 22:25
[2019-08-14] VITALS (21 sets, daily range): BP systolic 116–146; BP diastolic 70–87; PULSE 73–118; RESP 4–24; TEMP 36.4–37.7; O2SAT 86–96
[2019-08-14] MEDS: Normal Saline Flush 10 ML SYR IVP ×8 (00:19→18:08)
[2019-08-14] MEDS: Ketorolac 30 MG/ML VIAL IVP ×3 (00:52→18:07)
[2019-08-14] MEDS: Albuterol/Ipratropium 3 ML UPD VIAL UPD ×3 (00:53→11:18)
[2019-08-14] MEDS: Hydrocortisone SOD SUC. 100 MG VIAL 50 MG IVP ×4 (00:53→18:06)
[2019-08-14] MEDS: Enoxaparin 40 MG/0.4 ML SYR SC (00:53)
[2019-08-14] MEDS: HYDROmorphone 2 MG/ML VIAL IVP (01:57)
[2019-08-14] MEDS: Albuterol 2.5 MG/3 ML INH SOLN VIAL UPD ×3 (02:38→16:16)
[2019-08-14 03:02] LABS: BE 7.8 mmol/L (-3-3); HCO3 32 mmol/L (22-28); pCO2 45 mmHg (34-47); pH 7.46 (7.35-7.45); pO2 92 mmHg (83-108); sO2 97 % (94-98); tCO2 28 mmol/L (22-29)
[2019-08-14 03:03] LABS: Site Arterial Line
[2019-08-14] MEDS: Furosemide 40 MG/4 ML VIAL IVP (03:08)
[2019-08-14 06:59] LABS: Abs Immature Grans 0.01 k/cumm (0.0-0.09); Absolute Basophil Count 0.01 k/cumm (0.0-0.2); Absolute Eosinophil Count 0.01 k/cumm (0.0-0.7); Absolute Lymphocyte Count 0.63 k/cumm (1.2-3.4); Absolute Monocyte Count 0.45 k/cumm (0.11-0.7); Absolute Neutrophil Count 7.23 k/cumm (1.2-6.7); Basophils % 0.1; Eosinophils % 0.1; HCT 30.7 % (36.0-46.0); HGB 9.8 g/dL (12.0-15.5); Immature Grans % 0.1; Lymphocytes % 7.6; Mean Corp. HGB Concentration 31.9 g/dL (32.0-36.0); Mean Corpuscular Hemoglobin 28.5 pg (27.0-33.0); Mean Corpuscular Volume 89.2 fL (80-95); Monocytes % 5.4; Neutrophils % 86.7; Platelet Count 188 x1000/uL (130-400); RBC 3.44 m/cumm (4.00-5.20); RBC Distribution Width 13.1 % (11.7-14.6); White Blood Cell Count 8.34 k/cumm (4.4-10.8)
[2019-08-14 07:30] LABS: Anion Gap 7.7 mmol/L (3-11); BUN 6 mg/dL (7-18); CO2 32.3 mmol/L (21.0-32.0); CREATININE 0.69 mg/dL (0.55-1.02); Calcium 8.1 mg/dL (8.5-10.1); Chloride 97 mmol/L (98-107); Glucose 159 mg/dL (74-106); Magnesium 1.9 mg/dL (1.8-2.4); Potassium 3.5 mmol/L (3.5-5.1); Sodium 137 mmol/L (136-145)
[2019-08-14 07:40] LABS: Lactate 0.6 mmol/L (0.6-1.4)
--- NOTE | 2019-08-14 07:40 | DI.US_ITS ---
APPROVED REPORT EXAM: Comprehensive 2D, Doppler, and color-flow Echocardiogram Patient Location: In-Patient Computer Help Desk Representative: Hortensia Florez RDCS (AE) Rhythm: NSR Indications: new onset CHF, pneumonia, heroin use r/o endocarditis Conclusion Left Ventricle : The left ventricle is normal. Left ventricular systolic function is normal. The post erior wall thickness is normal. There is normal LV segmental wall motion. The left ventricular diast olic function is normal. LVEF is estimated to be 65-70%. Right Ventricle : The right ventricle is normal size. RV pressure overload pattern though RV appears to be functioning well. Atria : The left atrium size is normal. The right atrium size is normal. Aortic Valve : Aortic valve is probably trileaflet. No aortic regurgitation is present. There is no a ortic valvular stenosis. Tricuspid Valve : Tricuspid valve is not well visualized. Trace tricuspid regurgitation. Pulmonic Valve : Pulmonic valve is not well visualized. Great Vessels : The IVC is small in size, and collapses >50% with inspiration. Estimated RVSP is 14 -17 mmHg. The ascending aorta size is mildly dilated (3.6cm). There are no visualized vegetations on the aortic or mitral valve. Tricuspid and pulmonic valves are not well visualized. There is no prior echocardiogram available for comparison. Wall motion Left Ventricle The left ventricle is normal. Left ventricular systolic function is normal. The posterior wall thickn ess is normal. There is normal LV segmental wall motion. The left ventricular diastolic function is n ormal. There is ventricular systolic septal flattening suggestive of RV pressure overload. LVEF is es timated to be 65-70%. Right Ventricle The right ventricle is normal size. RV pressure overload pattern though RV appears to be functioning well. Atria The left atrium size is normal. The right atrium size is normal. Aortic Valve Aortic valve is probably trileaflet. There is no aortic valvular stenosis. No aortic regurgitation is present. Mitral Valve Mitral valve leaflets are thickened and myxomatous. No evidence of mitral valve stenosis. Mild to mod erate mitral regurgitation. Tricuspid Valve Tricuspid valve is not well visualized. Trace tricuspid regurgitation. Pulmonic Valve Pulmonic valve is not well visualized. Great Vessels The aortic root is normal in size. The ascending aorta size is mildly dilated (3.6cm). The IVC is sma ll in size, and collapses >50% with inspiration. Estimated RVSP is 14-17 mmHg. Pericardium There is no pericardial effusion. 2D Dimensions IVSd 1.10 cm F: 0.6-1.0 LV EDV A2C 127.50 mL PWd 0.75 cm F: 0.6 - 1.0 LV EDV A4C 128.80 mL LVDd 4.50 cm F: 3.8 - 5.2 LA Volume Index A2C 22.65 mL/m2 LVDs 3.15 cm F: 2.2 - 3.5 LA Volume Index A4C 23.46 mL/m2 Aortic Root 2.75 cm F: 2.7 - 3.3 LA Volume Index Biplane 25.01 mL/m2 RVID Base (AP4) 3.96 cm (M/F) 2.5-4.1 LA Area A4C 17.48 cm2 RA Area A4C 17.40 cm2 LA Area A2C 18.63 cm2 LVOT 2.25 cm (M/F) 1.5-2.5 EF AP4 75.08 % Ascending Aorta 3.60 cm F: 2.3 - 3.1 EF AP2 73.80 % LVEF (Teich) 57.93 % EF BP 73.74 % LVEF (Shaffer's) 73.74 % F: 54 - 74 LV Volume 98.77 mL F: 46 - 106 LV Volume Index 47.25 mL/m2 F: 29 - 61 FS 30.40 % LV Diastology E/A Ratio 0.9 MED E' 0.12 (>0.07 m/s) LV E/e MED 9.50 (<14) LAT E' 0.12 (>0.1 m/s) LV E/e LAT 9.00 (<14) Aortic Valve LVOT Area 4.01 cm2 LVOT Peak Yfn. 1.15 m/s LVOT Mean Yfn. 0.86 m/s LVOT Peak Gr. 5.55 mmHg AUDREY Vmax Index 1.15 cm2/m2 LVOT Mean Gr. 3.40 mmHg LVOT VTI 0.20 m AUDREY Mean Yfn. Index 1.25 cm2/m2 AoV Peak Yfn. 1.96 (0.5-1.3 m/s) AoV Mean Yfn. 1.31 m/s AO Peak GR. 15.30 mmHg AO Mean GR. 7.64 (<5 mmHg) AO VTI 0.36 (0.18-0.25 m) AUDREY (VTI) 1.96 (2.5-4.5 cm2) AUDREY (VTI) Index 1.24 cm/m2 Mitral Valve MV E Max Yfn. 1.12 (0.4-1.3 m/s) MV A Velocity 1.20 (0.4-1.3 m/s) E/A Ratio 0.92 MV Decel. Time 226.10 (160-240 msec) MV PHT 65.58 msec MVA PHT 3.35 cm2 Tricuspid Valve TR P. Velocity 1.91 m/s TV Regurg Vmax 1.91 m/s RAP Estimate 3.00 mmHg RVSP 17.50 mmHg TR P. Gradient 14.50 mmHg
[2019-08-14 07:52] LABS: C-Reactive Protein 14.77 mg/dL (0.0-0.3); NT-proBNP 377 pg/mL (<300)
[2019-08-14 08:47] LABS: Procalcitonin 0.1 ng/mL
--- NOTE | 2019-08-14 08:57 | DI.RAD_ITS ---
EXAM: XR CHEST COMPLETE MULTI VIEW CLINICAL HISTORY: pneumonia, pleural effusion COMPARISON: XR RIBS RT W PA LAT CHEST from 08/08/2019 FINDINGS: Four views of the chest were obtained including decubitus views. The right pleural effusion identifi ed on CT does not appear to be free-flowing. No left pleural effusion is seen. Cardiomegaly noted. No focal pulmonary consolidation. IMPRESSION: Chest radiograph supports the impression on CT that right pleural effusion is likely to be loculated.
[2019-08-14 09:16] LABS: ESR 111 mm/hr (0-20)
[2019-08-14] MEDS: Lidocaine 5% Patch 2 PATCH TP (09:35)
[2019-08-14] MEDS: Pantoprazole 20 MG TABCR PO (09:37)
[2019-08-14] MEDS: Benzonatate 200 MG CAP PO ×2 (09:37→13:54)
[2019-08-14] MEDS: Azithromycin 250 MG TAB PO (09:37)
--- NOTE | 2019-08-14 09:58 | SCONE_ITS ---
Date of service: 08/14/19 Time of Service: 09:58 Assessment and Plan Assessment and plan (1) Pneumonia of both lower lobes: Status: Acute Qualifiers: Pneumonia type: due to unspecified organism Qualified Code(s): J18.9 - Pneumonia, unspecified organism (2) Right rib fracture: Status: Acute Qualifiers: Encounter type: subsequent encounter Rib fracture type: single rib Fr acture type: closed Fracture healing: with routine healing Qualified Code(s): S22.31XD - Fracture of one rib, right side, subsequent encounter for fracture with routine healing (3) Chest wall pain: Status: Acute (4) Parapneumonic effusion: Status: Acute Assessment and plan: Given the pt Hx and the Ct findings- this is problable a loculated abscess. She does have a low hgb adn could be a an in fected hematoma from the fall. This also could be a cavitarian fungal infection w/ a secondary bacterial pneumonia or just a pneumonic abscess. either way she should be on abx and poss antifungals. She needs to be stabilized medically, and she is going to require VATS for diagnosis and management. She needs to be transferred to [facility] for definitive care. communicated to hosp and arrangements for transfer are being made. (5) History of asthma: Status: Acute (6) IV drug abuse: Status: Acute History of Present Illness Narrative: pt presented to ED w/ cough/congestion/chest wall pain. She is ctivily using IVDA and on methadone. She has a hx of maipulation, drug seeking behavious, and medical noncompliance. This has been ongoing for a over a week. From H & P: Chief Complaint: cough, dyspnea, chest wall pain, fevers Narrative: 34-year-old female known IV drug user of heroin who reportedly last used 5 days ago. She is also supposed to be on chronic Suboxone therapy for her drug addiction which she receives from a provider in [place] despite the fact that she is resided in [place] for the past 4 months. She presents emergency department with complaints of shortness of breath, cough, right-sided chest and rib pain as well as increased abdominal edema and bilateral lower leg edema. Her symptoms started several days ago. States she been fighting a cold for the past few weeks with upper respiratory congestion and nonproductive cough. However the cough got worse over the last few days and became productive of greenish sputum along with wheezing and increased shortness of breath and after a paroxysm of coughing she felt a pop on the right side of her chest wall and had severe right-sided pain with coughing or deep breathing. She presented to the emergency room on August 08, 2019 where she was diagnosed with a right-sided rib fracture in the posterior lateral seventh rib. She was treated with a Lidoderm patch and given aerosol treatments. At that time there was no pneumothorax and no pleural effusion or infiltrate. She was discharged from the emergency department on oxycodone prednisone and albuterol inhaler. Since that time she now returns emergency department with increased dyspnea worsening cough and worsening right-sided chest pain. She completed all of her oxycodone but never filled the prednisone but did fill the prescription for the inhaler. Over the last 5 days she has had increased bilateral leg edema and abdominal swelling. She has had fever and chills including rigors and sweats. Upon presentation emergency department she was tachycardic and hypoxic with an oxygen saturation in the high 80s which improved on 3 L of oxygen per nasal cannula. Examination demonstrated a morbidly obese female who was ill-appearing with diffuse expiratory wheezes and a harsh cough and cardiac exam was regular to slightly tachycardic. Neck was obese and difficult to diving judge JVD. She had 2+ pitting edema to both lower extremities up to her knees. Skin showed multiple superficial wounds where she been picking at the skin. Review of Systems All systems reviewed & are unremarkable except as noted in HPI and below PFSH Medical History History of asthma (Acute) History of bipolar disorder (Acute) IV drug abuse (Acute) Surgical History History of bilateral tubal ligation (Acute) History of section (Chronic) Social History Smoking/Tobacco Use Status: Current every day Tobacco Type: cigarettes Alcohol Intake: never Drug use: Occasionally Substance use type: heroin Details: on suboxone Do you feel safe at home: Yes Do you feel safe in your relationship?: Yes History History 4 Para Hx # Term Pregnancies 2 Multiple births Hx # Pregnancies Ectopic pregnancies AB induced 1 Hx Number of Living Children 2 AB spontaneous 1 Exam Resp Effort & Inspection: able to speak in complete sentences and abnormal respiratory pattern Other: decrease BS at right. c/o cough/chest pain/SOB Results Last Vital Signs Temp 37.1 C 08/14/19 07:41 Pulse 102 H 08/14/19 07:41 Resp 24 08/14/19 09:44 BP 144/87 H 08/14/19 07:41 Pulse Ox 95 08/14/19 09:40 Labs Result diagrams: 08/14/19 06:40 08/14/19 06:40 Labs: Laboratory Results - last 24 hr 08/13/19 08/13/19 08/13/19 18:55 18:55 18:55 WBC RBC Hgb Hct MCV MCH MCHC RDW Plt Count MPV Immature Gran % Neutrophils % Lymphocytes % Monocytes % Eosinophils % Basophils % Absolute Neutrophils Absolute Lymphocytes Absolute Monocytes Absolute Eosinophils Absolute Basophils ESR D-Dimer 2829 H Sample Site pCO2 pO2 O2 Saturation ABG pH ABG HCO3 ABG Total CO2 ABG Base Excess Sodium 131 L Potassium 3.5 Chloride 95 L Carbon Dioxide 31.1 Anion Gap 4.9 BUN 8 Creatinine 0.62 Estimated GFR/1.73 m2 >= 60.00 Glucose 105 Lactate 0.8 Calcium 8.3 L Magnesium Total Bilirubin 0.4 AST 28 ALT 31 Alkaline Phosphatase 94 Troponin I < 0.05 C-Reactive Protein NT-Pro-B Natriuret Pep 505 Total Protein 6.9 Albumin 2.8 L Procalcitonin Urine Color Urine Clarity Urine pH Ur Specific [place] Urine Protein Urine Ketones Urine Blood Urine Nitrite Urine Bilirubin Urine Urobilinogen Ur Leukocyte Esterase Urine RBC Urine WBC Ur Epithelial Cells Urine Crystals Urine Bacteria Urine Casts Urine Mucus Urine Other Ur Culture Indicated? Urine Glucose HIV 1&2 Antibody Rapid 08/13/19 08/13/19 08/13/19 18:55 19:30 21:24 WBC 11.71 H RBC 3.42 L Hgb 10.0 L Hct 30.0 L MCV 87.7 MCH 29.2 MCHC 33.3 RDW 12.9 Plt Count 182 MPV 10.8 Immature Gran % 0.2 Neutrophils % 69.9 Lymphocytes % 16.6 Monocytes % 12.0 Eosinophils % 1.1 Basophils % 0.2 Absolute Neutrophils 8.19 H Absolute Lymphocytes 1.94 Absolute Monocytes 1.41 H Absolute Eosinophils 0.13 Absolute Basophils 0.02 ESR 110 H D-Dimer Sample Site pCO2 pO2 O2 Saturation ABG pH ABG HCO3 ABG Total CO2 ABG Base Excess Sodium Potassium Chloride Carbon Dioxide Anion Gap BUN Creatinine Estimated GFR/1.73 m2 Glucose Lactate Calcium Magnesium Total Bilirubin AST ALT Alkaline Phosphatase Troponin I C-Reactive Protein NT-Pro-B Natriuret Pep Total Protein Albumin Procalcitonin Urine Color Yellow Urine Clarity Clear Urine pH 6.0 Ur Specific [place] <= 1.005 Urine Protein Negative Urine Ketones Negative Urine Blood Trace-lysed H Urine Nitrite Negative Urine Bilirubin Negative Urine Urobilinogen 0.2 Ur Leukocyte Esterase Small H Urine RBC Negative Urine WBC 5-10 Ur Epithelial Cells Few Urine Crystals Negative Urine Bacteria Negative Urine Casts Negative Urine Mucus Negative Urine Other Negative Ur Culture Indicated? Yes Urine Glucose Negative HIV 1&2 Antibody Rapid Cancelled 08/14/19 08/14/19 08/14/19 02:55 06:40 06:40 WBC 8.34 RBC 3.44 L Hgb 9.8 L Hct 30.7 L MCV 89.2 MCH 28.5 MCHC 31.9 L RDW 13.1 Plt Count 188 MPV 11.0 Immature Gran % 0.1 Neutrophils % 86.7 Lymphocytes % 7.6 Monocytes % 5.4 Eosinophils % 0.1 Basophils % 0.1 Absolute Neutrophils 7.23 H Absolute Lymphocytes 0.63 L Absolute Monocytes 0.45 Absolute Eosinophils 0.01 Absolute Basophils 0.01 ESR 111 H D-Dimer Sample Site Arterial line pCO2 45 pO2 92 O2 Saturation 97 ABG pH 7.46 H ABG HCO3 32 H ABG Total CO2 28 ABG Base Excess 7.8 H Sodium 137 Potassium 3.5 Chloride 97 L Carbon Dioxide 32.3 H Anion Gap 7.7 BUN 6 L Creatinine 0.69 Estimated GFR/1.73 m2 >= 60.00 Glucose 159 H Lactate Calcium 8.1 L Magnesium 1.9 Total Bilirubin AST ALT Alkaline Phosphatase Troponin I C-Reactive Protein 14.77 H NT-Pro-B Natriuret Pep 377 Total Protein Albumin Procalcitonin Urine Color Urine Clarity Urine pH Ur Specific [place] Urine Protein Urine Ketones Urine Blood Urine Nitrite Urine Bilirubin Urine Urobilinogen Ur Leukocyte Esterase Urine RBC Urine WBC Ur Epithelial Cells Urine Crystals Urine Bacteria Urine Casts Urine Mucus Urine Other Ur Culture Indicated? Urine Glucose HIV 1&2 Antibody Rapid 08/14/19 07:20 WBC RBC Hgb Hct MCV MCH MCHC RDW Plt Count MPV Immature Gran % Neutrophils % Lymphocytes % Monocytes % Eosinophils % Basophils % Absolute Neutrophils Absolute Lymphocytes Absolute Monocytes Absolute Eosinophils Absolute Basophils ESR D-Dimer Sample Site pCO2 pO2 O2 Saturation ABG pH ABG HCO3 ABG Total CO2 ABG Base Excess Sodium Potassium Chloride Carbon Dioxide Anion Gap BUN Creatinine Estimated GFR/1.73 m2 Glucose Lactate 0.6 Calcium Magnesium Total Bilirubin AST ALT Alkaline Phosphatase Troponin I C-Reactive Protein NT-Pro-B Natriuret Pep Total Protein Albumin Procalcitonin 0.1 Urine Color Urine Clarity Urine pH Ur Specific [place] Urine Protein Urine Ketones Urine Blood Urine Nitrite Urine Bilirubin Urine Urobilinogen Ur Leukocyte Esterase Urine RBC Urine WBC Ur Epithelial Cells Urine Crystals Urine Bacteria Urine Casts Urine Mucus Urine Other Ur Culture Indicated? Urine Glucose HIV 1&2 Antibody Rapid
--- NOTE | 2019-08-14 10:43 | PHARADMIT ---
Admission Pharmacy Clinical Review PNEUMONIA, RIGHT HEART FAILURE, R/O ENDOCARDITIS ( Heroin user) Code Status Full Code Current Weight Wgt-108.2 kg Renally Cleared and Narrow Therapeutic Index Meds CrCl~87.47 QTc Value / Action Taken QTc-448 na BP Control, Fever BP-144/87 Tmax-37.1C Electrolytes reviewed Na-137 K+3.5 Mag-1.9 DVT Prophylaxis Lovenox Opiate Usage / Scheduled Bowel Regimen Ordered Yes Yes Plt/SCr for Heparin / Enoxaparin Plts-188 SCr-0.69 INR for Warfarin na H/H stable, WBC/Bands H&H- 9.8/30.7 WBC- 8.34 Antibiotic appropriateness Azithromycin, Vancomycin, Rocephin Cultures and Sensitivities Sputum, Blood, Urine- Pending Surgical ABX d/c within 24 hr na DM control / Insulin Dosing BG-159 Heart Failure (Check EF%) (NORMA's, B-Block, Diuretics) none IV to PO Switch No Home Meds Reviewed Yes Home Meds Not Ordered Oxycodone Comments
[2019-08-14] MEDS: Acetaminophen 325 MG TAB PO (11:08)
--- NOTE | 2019-08-14 11:42 | W.NUTCONSULT ---
Date of service: 08/14/19 Time of Service: 12:40 Nutritional Consult ASSESSMENT: 34 year old female admitted with right heart failure, PNA, right rib fracture, hx of IV drug use. BMI indicates class 2 obesity. Following regular meal plan with adequate intake. Met with resident/family to discuss access to food in home. Reports no issues with adequate food supply. Offered education on weight management, optimal nutrition but pt declines. At high nutritional risk with hx of IV drug use, obesity. INTERVENTION: will be available prn if needs education on nutrition. will monitor po intake and weight and intervene as warranted Time Spent in Nutritional Counseling and Treatment: 5 min face to face
[2019-08-14] MEDS: Buprenorphine/Naloxone 8 mg/2 mg FILM 2 EACH SL (11:51)
--- NOTE | 2019-08-14 14:01 | INITIAL_ITS ---
- If Service Date Differs Date of service: 08/14/19 Time of Service: 14:01 Care Management Initial Assess REASON FOR HOSPITALIZATION:: Pneumonia, right heart failure, R/O endocarditis PAST MEDICAL HISTORY/PAST SURGICAL HISTORY:: Medical History. H/O ashthma, bipolar disorder, IV drug abuse. Surgical History. H/O bilateral tubal ligation, section PREVIOUS FUNCTIONAL STATUS/SOCIAL/FAMILY SUPPORTS:: Marii Nugent lived in [place], but recently relocated to [facility] for her work, at [employer]. She is with two children. She is independent at baseline. CURRENT FUNCTIONAL STATUS:: Marii Nugent was sitting up in her bed when CM met with her. She reported that she was not feeling well and she was tired. Her breathing appeared labored. She reported that the MD had been in to talk with her and was trying to find a bed for her in a tertiary facility. CM will continue to follow. ADVANCE DIRECTIVES:: None on file. Has patient been provided with information about the portal?: No Did the patient sign up for the portal?: No CODE STATUS:: Full Code INSURANCE COVERAGE / FINANCIAL ISSUES:: Issue CURRENT HOME/COMMUNITY SERVICES/EQUIPMENT:: Marii Nugent does not currently have equipment or services in the community. PRIMARY CARE PHYSICIAN:: No Local PCP. CM sent referral on 08/11/19 after an ED visit. CM will follow up with the office to see if an appointment was scheduled. POTENTIAL DISCHARGE NEEDS:: Evaluation for further needs, follow up appointments PATIENT/FAMILY EDUCATION NEEDS:: Review discharge instructions, discussion of self care needs including Ask Me Three ANTICIPATED BARRIERS TO DISCHARGE:: None identified TRANSPORTATION:: Anticipate Marii Nugent will be transported home via private vehicle by her vs ambulance transfer PLAN:: Marii Nugent will have an echo today to rule out endocarditis, but may have to be transferred to a tertiary facility. Disposition and plan to be determined. CM will continue to follow and support patient, family and staff with discharge planning considerations.
--- NOTE | 2019-08-14 15:22 | PGE_ITS ---
Date of Service Date of service: 08/14/19 Time of Service: 15:22 Assessment and Plan Assessment and plan (1) Pneumonia of both lower lobes: Status: Acute Assessment and plan: multifocal infiltrates on x-ray, empirically treating for bacterial PNA, however this may be fungal process vs septic embolic. continuing empiric vanc, ceftriaxone and azithromycin. her 02 requirements are decreasing. urine strep/legionella, and mycoplasma are pending. Qualifiers: Pneumonia type: due to unspecified organism Qualified Code(s): J18.9 - Pneumonia, unspecified organism (2) Parapneumonic effusion: Status: Acute Assessment and plan: large R pleural effusion with loculated component, possible empyema, possible posterior mediastinal mass. surgery consulted who do not feel thoracentesis is optimal diagnostic strategy and recommended thoracoscopy. She is currently ONLY willing to go to [facility] and they do not have bed availability. 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 TTE shows no aortic or miguel veg, blood cultures pending, if positive she may need ORACIO. on empiric abx. will cont suboxone. HIV is pending (4) History of asthma: Status: Acute Assessment and plan: cont duonebs (5) Right rib fracture: Status: Acute Assessment and plan: cont pain control with tylenol and lidocaine Qualifiers: Encounter type: subsequent encounter Fracture healing: with routine healing Fracture type: closed Rib fracture type: single rib Qualified Code(s): S22.31XD - Fracture of one rib, right side, subsequent encounter for fracture with routine healing (6) Right heart failure: Status: Suspected Assessment and plan: LE edema and RAD deviation on EKG. echo showed no evidence R heart failure. She did receive 1 dose of lasix (7) Oral herpes: Status: Acute Assessment and plan: will begin acyclovir Subjective Subjective Patient reports: no new complaints Interval history since last seen: Patient admitted with hypoxia and CT showing large R sided pleural effusion with likely loculate empyema and multifocal infilatrates. She was started on empiric broad spectrum abx. Echo this morning showed no evidence aortic or mitral vegetation, EF was normal. Case was discussed with surgery who did not feel a thoracentesis was optimal diagnostic strategy and recommended thoracoscopy at a facility capable of this procedure. Initally patient declnied transfer to [facility] or [facility] because she did not know who could care for her 18month old child since her has to work, and requested transfer to a facility near her family in [place], [place]. I spoke with hospitalist at [facility] in this area who accepted the patient for transfer. However patient then decided that she preferred to stay in the area and requested transfer to [facility]. I spoke with hospitalist at [facility] who agreed that patient needed further diagnostic eval but that [facility] had no current bed availability. Exam Narrative Exam Narrative: GEN: appears older than stated, non toxic HEENT: herpetic perioral lesions CV: tachycardic, regular, no murmur, nl s1 and s2 LUNGS: normal WOB, no accessory muscle use, no W/R/R, diminished to R mid lung field ABD: NABS, soft, NT, ND EXT: 1+ b/l LE edema SKIN: no track escobedo, no rash Objective Objective Clinical Data: Abnormal lab results 08/13/19 08/13/19 08/13/19 Range/Units 18:55 18:55 18:55 WBC 11.71 H (4.4-10.8) k/cumm RBC 3.42 L (4.00-5.20) m/cumm Hgb 10.0 L (12.0-15.5) g/dL Hct 30.0 L (36.0-46.0) % MCHC (32.0-36.0) g/dL Absolute Neutrophils 8.19 H (1.2-6.7) k/cumm Absolute Lymphocytes (1.2-3.4) k/cumm Absolute Monocytes 1.41 H (0.11-0.7) k/cumm ESR 110 H (0-20) mm/hr D-Dimer 2829 H (<500) ng/mlFEU ABG pH (7.35-7.45) ABG HCO3 (22-28) mmol/L ABG Base Excess (-3-3) mmol/L Sodium 131 L (136-145) mmol/L Chloride 95 L (98-107) mmol/L Carbon Dioxide (21.0-32.0) mmol/L BUN (7-18) mg/dL Glucose (74-106) mg/dL Calcium 8.3 L (8.5-10.1) mg/dL C-Reactive Protein (0.0-0.3) mg/dL Albumin 2.8 L (3.4-5.0) g/dL Urine Blood (Negative) Ur Leukocyte Esterase (Negative) 08/13/19 08/14/19 08/14/19 Range/Units 19:30 02:55 06:40 WBC (4.4-10.8) k/cumm RBC (4.00-5.20) m/cumm Hgb (12.0-15.5) g/dL Hct (36.0-46.0) % MCHC (32.0-36.0) g/dL Absolute Neutrophils (1.2-6.7) k/cumm Absolute Lymphocytes (1.2-3.4) k/cumm Absolute Monocytes (0.11-0.7) k/cumm ESR (0-20) mm/hr D-Dimer (<500) ng/mlFEU ABG pH 7.46 H (7.35-7.45) ABG HCO3 32 H (22-28) mmol/L ABG Base Excess 7.8 H (-3-3) mmol/L Sodium (136-145) mmol/L Chloride 97 L (98-107) mmol/L Carbon Dioxide 32.3 H (21.0-32.0) mmol/L BUN 6 L (7-18) mg/dL Glucose 159 H (74-106) mg/dL Calcium 8.1 L (8.5-10.1) mg/dL C-Reactive Protein 14.77 H (0.0-0.3) mg/dL Albumin (3.4-5.0) g/dL Urine Blood Trace-lysed H (Negative) Ur Leukocyte Esterase Small H (Negative) 08/14/19 Range/Units 06:40 WBC (4.4-10.8) k/cumm RBC 3.44 L (4.00-5.20) m/cumm Hgb 9.8 L (12.0-15.5) g/dL Hct 30.7 L (36.0-46.0) % MCHC 31.9 L (32.0-36.0) g/dL Absolute Neutrophils 7.23 H (1.2-6.7) k/cumm Absolute Lymphocytes 0.63 L (1.2-3.4) k/cumm Absolute Monocytes (0.11-0.7) k/cumm ESR 111 H (0-20) mm/hr D-Dimer (<500) ng/mlFEU ABG pH (7.35-7.45) ABG HCO3 (22-28) mmol/L ABG Base Excess (-3-3) mmol/L Sodium (136-145) mmol/L Chloride (98-107) mmol/L Carbon Dioxide (21.0-32.0) mmol/L BUN (7-18) mg/dL Glucose (74-106) mg/dL Calcium (8.5-10.1) mg/dL C-Reactive Protein (0.0-0.3) mg/dL Albumin (3.4-5.0) g/dL Urine Blood (Negative) Ur Leukocyte Esterase (Negative) Vital Signs Temperature 37.0 C 08/14/19 11:17 Temperature Source Tympanic 08/14/19 11:17 Pulse 108 H 08/14/19 13:43 Pulse Rhythm Regular 08/14/19 08:45 Pulse 114 H 08/13/19 22:40 Respiratory Rate 24 08/14/19 13:43 Respiratory Effort 08/14/19 11:26 Respiratory Depth Normal 08/14/19 11:26 Respiratory Pattern Normal 08/14/19 11:26 Blood Pressure 146/77 H 08/14/19 11:17 Blood Pressure Mean 99 08/13/19 22:25 Blood Pressure Position Sitting 08/13/19 18:30 Pulse Oximetry 92 L 08/14/19 13:50 Oxygen Delivery Method Nasal Cannula 08/14/19 13:50 Oxygen Flow Rate 1 08/14/19 13:50 Pain Level 8 08/14/19 11:17 Comment 08/14/19 02:45 Intake & Output 08/13/19 08/14/19 08/14/19 23:59 11:59 23:59 Intake Total 500 / 500 480 / 480 Output Total 900 / 900 1200 / 1200 Balance -400 / -400 -720 / -720 Weight 104.326 kg 108.2 kg Intake: IV 50 / 50 Oral 450 / 450 480 / 480 Output: Urine 900 / 900 1200 / 1200 Other: Urine Color Yellow Urine Appearance Clear Clear Urine Odor None Voiding Methods Toilet Laboratory Results WBC 8.34 k/cumm (4.4-10.8) 08/14/19 06:40 RBC 3.44 m/cumm (4.00-5.20) L 08/14/19 06:40 Hgb 9.8 g/dL (12.0-15.5) L 08/14/19 06:40 Hct 30.7 % (36.0-46.0) L 08/14/19 06:40 MCV 89.2 fL (80-95) 08/14/19 06:40 MCH 28.5 pg (27.0-33.0) 08/14/19 06:40 MCHC 31.9 g/dL (32.0-36.0) L 08/14/19 06:40 RDW 13.1 % (11.7-14.6) 08/14/19 06:40 Plt Count 188 x1000/uL (130-400) 08/14/19 06:40 MPV 11.0 fL (8.0-11.0) 08/14/19 06:40 Immature Gran % 0.1 08/14/19 06:40 Neutrophils % 86.7 08/14/19 06:40 Lymphocytes % 7.6 08/14/19 06:40 Monocytes % 5.4 08/14/19 06:40 Eosinophils % 0.1 08/14/19 06:40 Basophils % 0.1 08/14/19 06:40 Absolute Neutrophils 7.23 k/cumm (1.2-6.7) H 08/14/19 06:40 Absolute Lymphocytes 0.63 k/cumm (1.2-3.4) L 08/14/19 06:40 Absolute Monocytes 0.45 k/cumm (0.11-0.7) 08/14/19 06:40 Absolute Eosinophils 0.01 k/cumm (0.0-0.7) 08/14/19 06:40 Absolute Basophils 0.01 k/cumm (0.0-0.2) 08/14/19 06:40 ESR Cancelled 08/14/19 10:06 D-Dimer 2829 ng/mlFEU (<500) H 08/13/19 18:55 Sample Site Arterial line 08/14/19 02:55 pCO2 45 mmHg (34-47) 08/14/19 02:55 pO2 92 mmHg (83-108) 08/14/19 02:55 O2 Saturation 97 % (94-98) 08/14/19 02:55 ABG pH 7.46 (7.35-7.45) H 08/14/19 02:55 ABG HCO3 32 mmol/L (22-28) H 08/14/19 02:55 ABG Total CO2 28 mmol/L (22-29) 08/14/19 02:55 ABG Base Excess 7.8 mmol/L (-3-3) H 08/14/19 02:55 Sodium 137 mmol/L (136-145) 08/14/19 06:40 Potassium 3.5 mmol/L (3.5-5.1) 08/14/19 06:40 Chloride 97 mmol/L (98-107) L 08/14/19 06:40 Carbon Dioxide 32.3 mmol/L (21.0-32.0) H 08/14/19 06:40 Anion Gap 7.7 mmol/L (3-11) 08/14/19 06:40 BUN 6 mg/dL (7-18) L 08/14/19 06:40 Creatinine 0.69 mg/dL (0.55-1.02) 08/14/19 06:40 Estimated GFR/1.73 m2 >= 60.00 (mL/min/1.73m2) 08/14/19 06:40 Glucose 159 mg/dL (74-106) H 08/14/19 06:40 Lactate 0.6 mmol/L (0.6-1.4) 08/14/19 07:20 Calcium 8.1 mg/dL (8.5-10.1) L 08/14/19 06:40 Magnesium 1.9 mg/dL (1.8-2.4) 08/14/19 06:40 Total Bilirubin 0.4 mg/dL (0.2-1.0) 08/13/19 18:55 AST 28 U/L (15-37) 08/13/19 18:55 ALT 31 U/L (14-59) 08/13/19 18:55 Alkaline Phosphatase 94 U/L (46-116) 08/13/19 18:55 Troponin I < 0.05 ng/Ml (<0.06) 08/13/19 18:55 C-Reactive Protein 14.77 mg/dL (0.0-0.3) H 08/14/19 06:40 NT-Pro-B Natriuret Pep 377 pg/mL (<300) 08/14/19 06:40 Total Protein 6.9 g/dL (6.4-8.2) 08/13/19 18:55 Albumin 2.8 g/dL (3.4-5.0) L 08/13/19 18:55 Procalcitonin 0.1 ng/mL 08/14/19 07:20 Urine Color Yellow (Yellow) 08/13/19 19:30 Urine Clarity Clear (Clear) 08/13/19 19:30 Urine pH 6.0 (5-8) 08/13/19 19:30 Ur Specific [place] <= 1.005 (1.005-1.025) 08/13/19 19:30 Urine Protein Negative mg/dL (Negative) 08/13/19 19:30 Urine Ketones Negative mg/dL (Negative) 08/13/19 19:30 Urine Blood Trace-lysed (Negative) H 08/13/19 19:30 Urine Nitrite Negative (Negative) 08/13/19 19:30 Urine Bilirubin Negative (Negative) 08/13/19 19:30 Urine Urobilinogen 0.2 EU/dL (Up TO 0.2) 08/13/19 19:30 Ur Leukocyte Esterase Small (Negative) H 08/13/19 19:30 Urine RBC Negative HPF (0-2) 08/13/19 19:30 Urine WBC 5-10 HPF (0-5) 08/13/19 19:30 Ur Epithelial Cells Few HPF (Negative) 08/13/19 19:30 Urine Crystals Negative HPF (Negative) 08/13/19 19:30 Urine Bacteria Negative HPF (Negative) 08/13/19 19:30 Urine Casts Negative LPF (Negative) 08/13/19 19:30 Urine Mucus Negative (Negative) 08/13/19 19:30 Urine Other Negative (Negative) 08/13/19 19:30 Ur Culture Indicated? Yes 08/13/19 19:30 Urine Glucose Negative mg/dL (Negative) 08/13/19 19:30 HIV 1&2 Antibody Rapid Cancelled 08/13/19 21:24
--- NOTE | 2019-08-14 17:12 | DSE_ITS ---
Date of service: 08/14/19 Time of Service: 17:12 DS: Diagnosis Discharge Diagnosis (1) Pneumonia of both lower lobes: Status: Acute (2) Parapneumonic effusion: Status: Acute (3) IV drug abuse: Status: Acute (4) History of asthma: Status: Acute (5) Right rib fracture: Status: Acute (6) Right heart failure: Status: Suspected (7) Oral herpes: Status: Acute Discharge Plan Disposition Patient Disposition: OTHER Condition: Stable Discharge Details Chief Complaint: SOB Clinical Impression: Bilateral pneumonia, Pleural effusion Reason For Visit: PNEUMONIA,RIGHT HEART FAILURE,R/O ENDOCARDITIS Admit Date/Time: 08/13/19 22:24 Admit Provider: Live Wiggins Attending Provider: Live Wiggins Primary Care Provider: None,Aris ED Provider: Mary Helms Hospital Course Hospital Course: Pt presents 5 days after ED visit for R rib fracture during which was was also treated for viral bronchitis with dyspnea and pleuritic pain. She was hypoxic on arrival requiring 4L. She was afebrile and HD stable. Labs notable for SED of 111 and CRP of 14. CMP and CBC otherwise normal. D-dimer was slightly elevated. EKG showed RAD and no ischemia. Trop negative. CT chest showed multifocal infiltrates and large R pleural effusion and concern for loculated effusion. Echo showed no mitral or aortic vegetation and EF normal. Surgery was consulted who felt patient may need thoracoscopy. Patient was started on empiric vancomycin, ceftriaxone, and azithromycin. At the time of transfer she was requring 1L suplemenal 02. HIV and blood cultures pending at time of transfer. Home Meds and New Rx's Prescriptions: Continued buprenorphine-naloxone [Suboxone] 8-2 mg Film 2 film SUBLINGUAL DAILY RF: 0 oxycodone 5 mg tablet 5 mg PO Q6H PRN (Reason: pain) Qty: 7 RF: 0 albuterol sulfate 90 mcg/actuation aerosol powdr breath activated 2 inh IH Q6H PRN (Reason: shortness of breath or wheezing) Qty: 1 RF: 0 Discontinued prednisone 20 mg tablet See Rx Instructions .ROUTE .COMPLEX Qty: 12 RF: 0 Discharge Instructions Activity:: Activity as Tolerated Equipment/Supplies:: Oxygen (L/min Below) Diet:: As Tolerated Discharge Orders Discharge Orders: Discharge Order (Routine); Ordered 08/14/19 Ordered By: Whitley Cordero DS: Summary Summary Time spent discussing smoking cessation with patient: more than 10 minutes Status at Discharge Functional status at discharge: independent ambulation Overall status at discharge: patient is not back to baseline Mental Status: mental status grossly normal Speech and Movement: speech and movement normal Mood: congruent mood Affect: normal affect Exam Narrative Exam Narrative: Exam Narrative: GEN: appears older than stated, non toxic HEENT: herpetic perioral lesions CV: tachycardic, regular, no murmur, nl s1 and s2 LUNGS: normal WOB, no accessory muscle use, no W/R/R, diminished to R mid lung field ABD: NABS, soft, NT, ND EXT: 1+ b/l LE edema SKIN: no track escobedo, no rash Psych Mental Status: mental status grossly normal Speech and Movement: speech and movement normal Mood: congruent mood Affect: normal affect DS: Data Vitals/I&O Vitals and I&O: Vital Signs Temperature 37.2 C 08/14/19 16:28 Temperature Source Tympanic 08/14/19 16:28 Pulse 102 H 08/14/19 16:28 Pulse Rhythm Regular 08/14/19 08:45 Pulse 114 H 08/13/19 22:40 Respiratory Rate 19 08/14/19 16:28 Respiratory Effort 08/14/19 15:25 Respiratory Depth Normal 08/14/19 15:25 Respiratory Pattern Normal 08/14/19 15:25 Blood Pressure 116/71 08/14/19 16:28 Blood Pressure Mean 99 08/13/19 22:25 Blood Pressure Position Sitting 08/13/19 18:30 Pulse Oximetry 95 08/14/19 17:10 Oxygen Delivery Method Nasal Cannula 08/14/19 17:10 Oxygen Flow Rate 2 08/14/19 17:10 Pain Level 0 08/14/19 16:28 Comment 08/14/19 15:36 Intake & Output 08/13/19 08/14/19 08/14/19 23:59 11:59 23:59 Intake Total 500 / 500 730 / 730 Output Total 900 / 900 1200 / 1200 Balance -400 / -400 -470 / -470 Weight 104.326 kg 108.2 kg Intake: IV 50 / 50 250 / 250 Oral 450 / 450 480 / 480 Output: Urine 900 / 900 1200 / 1200 Other: Urine Color Yellow Urine Appearance Clear Clear Urine Odor None Voiding Methods Toilet Data Completed and Pending Labs on day of discharge: Labs from last 24 hours 08/14/19 08/14/19 08/14/19 12:00 10:06 07:20 WBC RBC Hgb Hct MCV MCH MCHC RDW Plt Count MPV Immature Gran % Neutrophils % Lymphocytes % Monocytes % Eosinophils % Basophils % Absolute Neutrophils Absolute Lymphocytes Absolute Monocytes Absolute Eosinophils Absolute Basophils ESR Cancelled D-Dimer Sample Site pCO2 pO2 O2 Saturation ABG pH ABG HCO3 ABG Total CO2 ABG Base Excess Sodium Potassium Chloride Carbon Dioxide Anion Gap BUN Creatinine Estimated GFR/1.73 m2 Glucose Lactate 0.6 Calcium Magnesium Total Bilirubin AST ALT Alkaline Phosphatase Troponin I C-Reactive Protein NT-Pro-B Natriuret Pep Total Protein Albumin Procalcitonin 0.1 Urine Color Urine Clarity Urine pH Ur Specific [place] Urine Protein Urine Ketones Urine Blood Urine Nitrite Urine Bilirubin Urine Urobilinogen Ur Leukocyte Esterase Urine RBC Urine WBC Ur Epithelial Cells Urine Crystals Urine Bacteria Urine Casts Urine Mucus Urine Other Ur Culture Indicated? Urine Glucose HIV 1&2 Ag/Ab, 4th Gen HIV 1&2 Antibody Rapid Urine Legionella Ag M. pneumoniae Source Pending M. pneumoniae (PCR) Pending Ur Strep pneumoniae Ag 08/14/19 08/14/19 08/14/19 06:40 06:40 02:55 WBC 8.34 RBC 3.44 L Hgb 9.8 L Hct 30.7 L MCV 89.2 MCH 28.5 MCHC 31.9 L RDW 13.1 Plt Count 188 MPV 11.0 Immature Gran % 0.1 Neutrophils % 86.7 Lymphocytes % 7.6 Monocytes % 5.4 Eosinophils % 0.1 Basophils % 0.1 Absolute Neutrophils 7.23 H Absolute Lymphocytes 0.63 L Absolute Monocytes 0.45 Absolute Eosinophils 0.01 Absolute Basophils 0.01 ESR 111 H D-Dimer Sample Site Arterial line pCO2 45 pO2 92 O2 Saturation 97 ABG pH 7.46 H ABG HCO3 32 H ABG Total CO2 28 ABG Base Excess 7.8 H Sodium 137 Potassium 3.5 Chloride 97 L Carbon Dioxide 32.3 H Anion Gap 7.7 BUN 6 L Creatinine 0.69 Estimated GFR/1.73 m2 >= 60.00 Glucose 159 H Lactate Calcium 8.1 L Magnesium 1.9 Total Bilirubin AST ALT Alkaline Phosphatase Troponin I C-Reactive Protein 14.77 H NT-Pro-B Natriuret Pep 377 Total Protein Albumin Procalcitonin Urine Color Urine Clarity Urine pH Ur Specific [place] Urine Protein Urine Ketones Urine Blood Urine Nitrite Urine Bilirubin Urine Urobilinogen Ur Leukocyte Esterase Urine RBC Urine WBC Ur Epithelial Cells Urine Crystals Urine Bacteria Urine Casts Urine Mucus Urine Other Ur Culture Indicated? Urine Glucose HIV 1&2 Ag/Ab, 4th Gen HIV 1&2 Antibody Rapid Urine Legionella Ag M. pneumoniae Source M. pneumoniae (PCR) Ur Strep pneumoniae Ag 08/14/19 08/14/19 08/13/19 02:45 02:45 21:30 WBC RBC Hgb Hct MCV MCH MCHC RDW Plt Count MPV Immature Gran % Neutrophils % Lymphocytes % Monocytes % Eosinophils % Basophils % Absolute Neutrophils Absolute Lymphocytes Absolute Monocytes Absolute Eosinophils Absolute Basophils ESR D-Dimer Sample Site pCO2 pO2 O2 Saturation ABG pH ABG HCO3 ABG Total CO2 ABG Base Excess Sodium Potassium Chloride Carbon Dioxide Anion Gap BUN Creatinine Estimated GFR/1.73 m2 Glucose Lactate Calcium Magnesium Total Bilirubin AST ALT Alkaline Phosphatase Troponin I C-Reactive Protein NT-Pro-B Natriuret Pep Total Protein Albumin Procalcitonin Urine Color Urine Clarity Urine pH Ur Specific [place] Urine Protein Urine Ketones Urine Blood Urine Nitrite Urine Bilirubin Urine Urobilinogen Ur Leukocyte Esterase Urine RBC Urine WBC Ur Epithelial Cells Urine Crystals Urine Bacteria Urine Casts Urine Mucus Urine Other Ur Culture Indicated? Urine Glucose HIV 1&2 Ag/Ab, 4th Gen Pending HIV 1&2 Antibody Rapid Urine Legionella Ag Pending M. pneumoniae Source M. pneumoniae (PCR) Ur Strep pneumoniae Ag Pending 08/13/19 08/13/19 08/13/19 21:24 19:30 18:55 WBC 11.71 H RBC 3.42 L Hgb 10.0 L Hct 30.0 L MCV 87.7 MCH 29.2 MCHC 33.3 RDW 12.9 Plt Count 182 MPV 10.8 Immature Gran % 0.2 Neutrophils % 69.9 Lymphocytes % 16.6 Monocytes % 12.0 Eosinophils % 1.1 Basophils % 0.2 Absolute Neutrophils 8.19 H Absolute Lymphocytes 1.94 Absolute Monocytes 1.41 H Absolute Eosinophils 0.13 Absolute Basophils 0.02 ESR 110 H D-Dimer Sample Site pCO2 pO2 O2 Saturation ABG pH ABG HCO3 ABG Total CO2 ABG Base Excess Sodium Potassium Chloride Carbon Dioxide Anion Gap BUN Creatinine Estimated GFR/1.73 m2 Glucose Lactate Calcium Magnesium Total Bilirubin AST ALT Alkaline Phosphatase Troponin I C-Reactive Protein NT-Pro-B Natriuret Pep Total Protein Albumin Procalcitonin Urine Color Yellow Urine Clarity Clear Urine pH 6.0 Ur Specific [place] <= 1.005 Urine Protein Negative Urine Ketones Negative Urine Blood Trace-lysed H Urine Nitrite Negative Urine Bilirubin Negative Urine Urobilinogen 0.2 Ur Leukocyte Esterase Small H Urine RBC Negative Urine WBC 5-10 Ur Epithelial Cells Few Urine Crystals Negative Urine Bacteria Negative Urine Casts Negative Urine Mucus Negative Urine Other Negative Ur Culture Indicated? Yes Urine Glucose Negative HIV 1&2 Ag/Ab, 4th Gen HIV 1&2 Antibody Rapid Cancelled Urine Legionella Ag M. pneumoniae Source M. pneumoniae (PCR) Ur Strep pneumoniae Ag 08/13/19 08/13/19 08/13/19 18:55 18:55 18:55 WBC RBC Hgb Hct MCV MCH MCHC RDW Plt Count MPV Immature Gran % Neutrophils % Lymphocytes % Monocytes % Eosinophils % Basophils % Absolute Neutrophils Absolute Lymphocytes Absolute Monocytes Absolute Eosinophils Absolute Basophils ESR D-Dimer 2829 H Sample Site pCO2 pO2 O2 Saturation ABG pH ABG HCO3 ABG Total CO2 ABG Base Excess Sodium 131 L Potassium 3.5 Chloride 95 L Carbon Dioxide 31.1 Anion Gap 4.9 BUN 8 Creatinine 0.62 Estimated GFR/1.73 m2 >= 60.00 Glucose 105 Lactate 0.8 Calcium 8.3 L Magnesium Total Bilirubin 0.4 AST 28 ALT 31 Alkaline Phosphatase 94 Troponin I < 0.05 C-Reactive Protein NT-Pro-B Natriuret Pep 505 Total Protein 6.9 Albumin 2.8 L Procalcitonin Urine Color Urine Clarity Urine pH Ur Specific [place] Urine Protein Urine Ketones Urine Blood Urine Nitrite Urine Bilirubin Urine Urobilinogen Ur Leukocyte Esterase Urine RBC Urine WBC Ur Epithelial Cells Urine Crystals Urine Bacteria Urine Casts Urine Mucus Urine Other Ur Culture Indicated? Urine Glucose HIV 1&2 Ag/Ab, 4th Gen HIV 1&2 Antibody Rapid Urine Legionella Ag M. pneumoniae Source M. pneumoniae (PCR) Ur Strep pneumoniae Ag 08/14/19 03:20 Sputum Sputum Culture - Pending 08/13/19 21:30 Blood Blood Culture - Pending 08/13/19 18:55 Blood Blood Culture - Pending Preliminary micro results at discharge 08/13/19 19:30 Urine Culture - Preliminary Urine - Reflex from Ua Gram Positive Charlene 08/14/19 03:20 Sputum Culture - Pending Sputum 08/13/19 21:30 Blood Culture - Pending Blood 08/13/19 18:55 Blood Culture - Pending Blood [facility] Medical History History of asthma (Acute) History of bipolar disorder (Acute) IV drug abuse (Acute) Surgical History (Updated 08/14/19 @ 03:16 by Live Wiggins) History of bilateral tubal ligation (Acute) History of section (Chronic) Social History Smoking/Tobacco Use Status: Current every day Tobacco Type: cigarettes Alcohol Intake: never Drug use: Occasionally Substance use type: heroin Details: on suboxone Do you feel safe at home: Yes Do you feel safe in your relationship?: Yes History History 4 Para Hx # Term Pregnancies 2 Multiple births Hx # Pregnancies Ectopic pregnancies AB induced 1 Hx Number of Living Children 2 AB spontaneous 1
[2019-08-14] MEDS: Nicotine 2 MG GUM CH (17:22)
--- NOTE | 2019-08-14 18:31 | CMDISCH_ITS ---
- If Service Date Differs Date of service: 08/14/19 Time of Service: 18:31 LACE Index Scoring Tool - Questions: Length of Stay (in days): 2 Acuity (Admit via E.D.?): Yes E.D. Visits: 2 - Answers: Total Score: 7 Risk of Readmission: Low Risk Care Management Discharge Reason for Hospitalization: Pneumonia, right heart failure, R/O endocarditis Discharge Plan: Marii Nugent was transferred to [facility] for possible thoracoscopy. She was transferred by [facility]. She will have follow up appointments determined by the direction of care she receives at [facility]. Patient/Family Education Needs: Review discharge instructions, discussion of self care needs including Ask Me Three Services Needed at Discharge: Transportation ([facility])
[2019-08-14 19:10] LABS: Legionella Ag Detection Urine Negative (Negative)
[2019-08-15 11:41] LABS: HIV-1/2 Ag & Ab Screen Negative (Negative)
[2019-08-15 12:40] LABS: Streptococcus Pneumoniae Ag, U Negative (Negative)
[2019-08-16 00:17] LABS: Mycoplasma Pneumoniae PCR Negative; Specimen source SPUTUM
== END 2019-08-14 18:33 | disposition other institution (70) | DRG 194 ==
LOC: ER 22:25 → MS 23:05
PROVIDERS: Admitting Provider Internal Medicine; Emergency Provider Physician Assistant; Visit Provider Internal Medicine
DX: J18.1 Lobar pneumonia, unspecified organism (principal); J91.8 Pleural effusion in other conditions classified elsewhere; B00.2 Herpesviral gingivostomatitis and pharyngotonsillitis; F11.20 Opioid dependence, uncomplicated; R07.81 Pleurodynia; S22.31XD Fracture of one rib, right side, subsequent encounter for fracture with routine healing; F19.10 Other psychoactive substance abuse, uncomplicated; R09.02 Hypoxemia; J45.909 Unspecified asthma, uncomplicated; I50.811 Acute right heart failure; F17.210 Nicotine dependence, cigarettes, uncomplicated; Z71.89 Other specified counseling; E66.01 Morbid (severe) obesity due to excess calories; Z68.39 Body mass index [BMI] 39.0-39.9, adult
CPT/HCPCS: 36415; 71275; 80048; 80053; 81025; 82805; 84145; 85652; 87040; 87389; 87449; 93005; 94640; 96365; 96368; 96375; 99223; 99233; 99239; 99253; 99285; J1650; J3490; 71048; 81003; 81015; 83605; 83735; 83880; 84484; 85025; 85379; 86140; 87070; 87086; 87205; 87450; 87581; 93010; 93306; J0456; J0696; J1720; J1885; J1940; J2405; J3370; J7613; J7620